=== PATIENT | male | born 2005 | race African-American/Black ===

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

== ENCOUNTER 2024-01-26 17:41 | Emergency (ER) | payer OTHER, SELFPAY ==
[~2024-01-26 17:41] MED LIST: Iopamidol-370 76% 500 ML MDV (1 ML CHARGE) ONE
[2024-01-26 18:18] LABS: #Basophils Less than 0.03 10x3/uL (0.0-0.2); #Eosinphils Less than 0.03 10x3/uL (0.0-0.7); %Basophils 0.1 % (0.0-1.0); %Lymphocytes 6.7 % (28.0-48.0); %Monocytes 3.8 % (0.0-4.0); %Neutrophils 89.2 % (31.0-61.0); Hematocrit 41.2 % (42.0-52.0); Mean Corpuscular Hemoglobin 29.2 pg (25.0-35.0); Mean Platelet Volume 12.1 fL (7.4-10.4); Platelet Count 163 10x3/uL (130-400); RBC Distribution Width 13.6 % (11.5-14.5); Red Blood Cell (RBC) Count 4.79 mill/uL (4.00-5.20)
[2024-01-26 18:31] LABS: ALT (SGPT) 17 U/L (8-55); AST (SGOT) 30 U/L (10-45); Albumin 4.5 g/dL (3.5-5.0); Alkaline Phosphatase 84 U/L (50-130); Anion Gap 14 mmol/L (10-20); BUN (Urea Nitrogen) 16 mg/dL (8.4-21.0); Bilirubin, Total 0.5 mg/dL (0.2-1.2); Calc. Creatinine Clearance 0 mL/min (70-130); Calcium 10.1 mg/dL (7.8-10.44); Carbon Dioxide 25 mmol/L (22-29); Chloride 106 mmol/L (98-107); Estimated GFR 78; Globulin 3.2 g/dL (2.4-3.5); Glucose 119 mg/dL (70-105); Lipase 11 U/L (8-78); Potassium 3.9 mmol/L (3.5-5.1); Protein, Total 7.7 g/dL (6.0-8.3); Sodium 141 mmol/L (136-145)
[2024-01-26] MEDS ORDERED: Ondansetron PF 4 MG/2 ML Vial ONE (18:52)
[2024-01-26] MEDS ORDERED: Morphine 4 MG/ML VIAL ONE (18:52)
== END 2024-01-26 21:55 | disposition home or self-care (01) ==
LOC: ERS 17:41
DX: K56.1 Intussusception (principal)
CPT/HCPCS: 36415; 71045; 74177; 80053; 83605; 83690; 85025; 96374; 96375; J2272; J2405; Q9967